=== PATIENT | male | born 2005 | race Caucasian/White ===

== ENCOUNTER 2025-01-08 16:08 | Emergency (ER) | payer OTHER, SELFPAY ==
[2025-01-08 16:13] VITALS: BP 120/61; PULSE 98; RESP 18; TEMP 36.7; O2SAT 96; BMI 20.5
--- NOTE | 2025-01-08 16:14 | ED_ITS ---
Discharge Plan Disposition Patient Disposition: Home, Self-Care Condition: Good Prescriptions Prescriptions: No Action No Known Home Medications Referrals Follow up/Referrals: Provider,Referral, MD [Primary Care Provider] - See instructions Activity Restrictions/Add. Instructions Additional Instructions/Restrictions: As we discussed, we did not see any abnormality with your lung this time on the CT scan of your chest. Please return with any new or worsening symptoms. Please take ibuprofen as needed Clinical Impressions Clinical Impression: Acute chest wall pain, Chest wall pain Print Language Print Language: Indian Discharge ED Provider: Piter Wtason Adult HPI General Chief complaint: PAIN Stated complaint: pain Time Seen by Provider: 01/08/25 16:14 History of Present Illness HPI narrative: Patient presents for evaluation of right-sided thoracic chest pain, pleuritic in nature, mild in severity, with no associated dyspnea, in the setting of history of spontaneous pneumothorax. He was wrestling with a friend and got head butted in the chest and began to feel short of breath. This occurred shortly prior to arrival. No previous therapies. No other injuries or symptoms. Please note that above description of symptoms, in this electronic medical record under categorization of recalled from ER triage doctor by RN are refl ective of an initial nursing assessment, however, is not reflective of my full history and physical exam that was personally taken and clarified. Consequentially, this preceding description of symptoms, which may include the patient's categorized chief complaint in the EMR, do not reflect my personal clinical impression, and the ultimate description of history of present illness and patient stated complaints should be deferred to this section of the note. Unless stated otherwise or congruent with this section of the note, additional signs, symptoms, or incongruence should be interpreted as inaccurate with my clinical impression. Related Data Home Medications ?Medication ?Instructions ?Recorded ?Confirmed No Known Home Medications 01/08/25 01/08/25 Allergies Allergy/AdvReac Type Severity Reaction Status Date / Time No Known Allergies Allergy Verified 01/08/25 16:25 [facility] Disclaimer: The information contained in this section may have been updated after the patient was seen, as this information can be updated by other users. Social History Smoking Status: Current every day smoker alcohol intake: never current occupational status: other Travel in the last 8 weeks: None ROS Obtained: Yes other As per HPI Physical Exam General General appearance: alert and in no apparent distress Head Head exam: atraumatic and normocephalic Eye Eye exam: Present normal appearance Neck Neck exam: Present normal inspection Chest Chest inspection: Present normal inspection and symmetric chest wall rise Respiratory Respiratory exam: Present normal lung sounds bilaterally; Absent respiratory distress Cardiovascular Cardiovascular exam: Present regular rate and normal rhythm Abdominal Exam Abdominal exam: Present soft Neurological Exam Neurological exam: Present alert and oriented X3 Psychiatric Psychiatric exam: Present normal affect and normal mood Skin Skin exam: Present warm and dry Medical Decision Making Medical Records Medical records reviewed: Yes I reviewed the patient's medical records. Screening: Per USPSTF and CDC recommendations, given the prevalence of disease in our region, it is our hospital?s policy to screen for HIV and viral Hepatitis for all patients aged 18 and over and those with ongoing risk factors. Clint Inquiry Pt receiving controlled substance: No Vital Signs: 01/08/25 16:13 01/08/25 17:08 01/08/25 17:30 Temperature 98.1 F Temperature Source Oral Pulse Rate 92 H 78 Pulse Rate [Right] 98 H Respiratory Rate 18 Blood Pressure 116/51 L 107/56 L Blood Pressure [Right Arm] 120/61 Blood Pressure Mean [Right Arm] 80 02 Sat by Pulse Oximetry 96 95 95 Oxygen Delivery Method Room Air Room Air Room Air 01/08/25 17:55 Temperature 98.2 F Temperature Source Pulse Rate 80 Pulse Rate [Right] Respiratory Rate 20 Blood Pressure 107/56 L Blood Pressure [Right Arm] Blood Pressure Mean [Right Arm] 02 Sat by Pulse Oximetry Oxygen Delivery Method Room Air Orders (Tests/Meds): ED MEDICATIONS Discontinued Medications Generic Name Dose Route Start Last Admin Trade Name Freq PRN Reason Stop Dose Admin Ketorolac Tromethamine 15 mg 01/08/25 16:33 01/08/25 17:03 Ketorolac 30mg/Ml Vial IM 01/08/25 16:34 15 mg ONCE ONE Administration ORDERS Category Date Time Status CT chest wo con Stat Cat Scan 01/08/25 16:33 Completed Medical Decision Narrative: Patient with history and exam per above presenting for evaluation of pleuritic chest pain after blunt trauma in the setting of history of pneumothorax. Diagnoses considered include pneumothorax, blunt injury, rib fracture, among others ED workup and treatment included: ED MEDICATIONS Discontinued Medications Generic Name Dose Route Start Last Admin Trade Name Freq PRN Reason Stop Dose Admin Ketorolac Tromethamine 15 mg 01/08/25 16:33 01/08/25 17:03 Ketorolac 30mg/Ml Vial IM 01/08/25 16:34 15 mg ONCE ONE Administration ORDERS Category Date Time Status CT chest wo con Stat Cat Scan 01/08/25 16:33 Completed Imaging was independently visualized and interpreted by me, significant for no acute findings Please refer to radiology report for full details. My clinical impression at this time is most consistent with pain associated with blunt injury to chest, nonsurgical in nature. I discussed my clinical impression with patient and answered all questions. At this time, the evidence for any other entities in the differential is insufficient to warrant any further testing or ED observation. This was explained to the patient. The patient was advised that persistent or worsening symptoms require further evaluation. Critical Care Critical Care Time Critical Care Time: No
--- NOTE | 2025-01-08 16:32 | PC.NURSE ---
dr nelson at bedside
--- NOTE | 2025-01-08 16:33 | CT_ITS ---
PROCEDURE INFORMATION: Exam: CT Chest Without Contrast; Diagnostic Exam date and time: 01/08/2025 3:46 PM Age: 19 years old Clinical indication: Pain; Chest pressure; Additional info: HX ptx on R, blunt injury, pleuritic pain TECHNIQUE: Imaging protocol: Diagnostic computed tomography of the chest without contrast. Radiation optimization: All CT scans at this facility use at least one of these dose optimization techniques: automated exposure control; mA and/or kV adjustment per patient size (includes targeted exams where dose is matched to clinical indication); or iterative reconstruction. COMPARISON: No relevant prior studies available. FINDINGS: Lungs: Unremarkable. No consolidation. No masses. Pleural spaces: Unremarkable. No pneumothorax. No pleural effusion. Heart: Unremarkable. No cardiomegaly. No pericardial effusion. Coronary arteries: No significant coronary artery calcifications. Lymph nodes: Unremarkable. No enlarged lymph nodes. Vasculature: Unremarkable. No aortic aneurysm. Bones/joints: Unremarkable. No acute fracture. Soft tissues: Unremarkable. IMPRESSION: No acute findings.
[2025-01-08] MEDS: KETOROLAC 30MG/ML VIAL 15 MG IM (17:03)
[2025-01-08 17:08] VITALS: BP 116/51; PULSE 92; O2SAT 95
[2025-01-08 17:30] VITALS: BP 107/56; PULSE 78; O2SAT 95
--- NOTE | 2025-01-08 17:53 | PC.NURSE ---
DR MOON AT BEDSIDE TO UPDATE PT AND FAMILY
[2025-01-08 17:55] VITALS: BP 107/56; PULSE 80; RESP 20; TEMP 36.8; O2SAT 95
== END 2025-01-08 18:00 | disposition home or self-care (01) ==
PROVIDERS: Emergency Provider Emergency Medicine
DX: R07.89 Other chest pain (principal); R06.02 Shortness of breath
CPT/HCPCS: 71250; 96372; 99284; J1885